=== PATIENT | male | born 1945 | race Hispanic/Latino ===

== ENCOUNTER 2017-07-21 12:37 | Emergency (ER) | payer MEDICARE, MEDICAID ==
[~2017-07-21] VITALS: Ht 175.3 cm; Wt 113.0 kg
[~2017-07-21 12:37] MED LIST: AFRIN 12 HOUR0.05 %; ANTIVERT PO; ASPIRIN ADULT L81 M2 PO; ASPIRIN EC81 MG PO; BACTRIM DS1 TAB PO; CARVEDILOL25 MG PO; CASCARA SAGR450 MG PO; CLOPIDOGREL75 MG PO; COLACE100 MG PO; COREG25 MG PO; COZAAR100 MG PO; FLUARIX QUADRIV1 IN1 IM; FUROSEMIDE20 MG PO; GLIPIZIDE5 M2 PO; HYDROCO/APAP1 TA9 PO; ISORDIL10 MG PO; JANUVIA100 MG PO; LANTUS100 MG/ML SC; LASIX 20 MG TAB20 MG PO; LISINOPRIL40 MG PO; LORTAB 5-325 MG1 TAB PO; LORTAB 5/3255 MG PO; METFORMIN500 MG PO; MULTIVITAMI1 PO; NITROSTAT0.4 MG PO; NITROSTAT0.4 MG SL; PANTOPRAZOLE SO40 MG PO; PRAVASTATIN SOD40 MG PO; PROTONIX40 M2 PO; SERTRALINE50 MG PO; TAMSULOSIN HCL0.4 MG PO; TAMSULOSIN0.4 MG PO; TOPROL XL PO; TOUJEO SOL300 UNIT/M SC; ZETIA10 MG PO; ZOFRAN4 M1 PO; ZOLOFT50 MG PO
[2017-07-21 12:59] LABS: HEMOGLOBIN 13.7 g/dl (14.0-18.0); IMMATURE GRANULOCYTES 0.2 % (0.0-1.0); MEAN CELL VOLUME 87.7 fL CALC (80.0-100.0); MEAN CORPUSCULAR HGB CONC 34.3 g/L CALC (32.0-36.0); NEUT# 2.43 thou/uL (1.82-7.42); RED BLOOD COUNT 4.56 mill/uL (4.70-6.10); RED CELL DISTRI WIDTH 12.5 % (11.5-15.5)
[2017-07-21 13:12] LABS: ALBUMIN 4.1 g/dL (3.2-5.0); ALKALINE PHOSPHATASE 56 u/l (38-126); ANION GAP 14 (6-22 (CALC)); BILIRUBIN, TOTAL 0.4 mg/dL (0.0-1.4); BUN 23 mg/dL (8-23); BUN/CREATININE RATIO 30 (12-20 (CALC)); CALCIUM 9.4 mg/dL (8.4-10.2); CARBON DIOXIDE 23 mmol/l (22-30); CHLORIDE 105 mmol/l (95-108); CREATININE 0.8 mg/dL (0.7-1.3); GFR > 60 ML/MIN (>=60 (CALC)); GFR FOR AFR.AMER. > 60 ML/MIN (>=60 (CALC)); GLUCOSE 132 mg/dL (82-115); POTASSIUM 4.5 mmol/l (3.5-5.1); SGOT/AST 19 u/l (19-48); SGPT/ALT 34 u/l (11-66); SODIUM 138 mmol/l (137-146)
[2017-07-21 13:24] LABS: MYOGLOBIN 70 ng/mL (0 - 121)
[2017-07-21 15:08] LABS: URINE BILIRUBIN - DIPSTICK NEGATIVE (NEGATIVE); URINE BLOOD DIPSTICK NEGATIVE (NEGATIVE); URINE CLARITY CLEAR; URINE COLOR YELLOW; URINE GLUCOSE - DIPSTICK NEGATIVE (NEGATIVE); URINE KETONE NEGATIVE (NEGATIVE); URINE LEUK ESTERASE NEGATIVE (NEGATIVE); URINE NITRITE - DIPSTICK NEGATIVE (Negative); URINE PH 5.5 (4.5-8.0); URINE PROTEIN - DIPSTICK NEGATIVE (NEG-TRACE); URINE SPECIFIC GRAVITY 1.015; URINE UROBILINOGEN - DIPSTICK 0.2 E.U./dL (0.2)
[2017-07-21] MEDS ORDERED: NAPROSYN500 MG PO (15:59)
[2017-07-21 16:10] VITALS: BP 165/72
== END 2017-07-21 16:24 | disposition home or self-care (01) ==
LOC: ED 12:37
PROVIDERS: Emergency Medicine
DX: R07.89 Other chest pain (principal); R06.02 Shortness of breath; I25.810 Atherosclerosis of coronary artery bypass graft(s) without angina pectoris; I10 Essential (primary) hypertension; Z95.1 Presence of aortocoronary bypass graft; E11.9 Type 2 diabetes mellitus without complications; Z79.4 Long term (current) use of insulin

== ENCOUNTER 2018-05-22 13:31 | Observation (INO) | payer MEDICARE, MEDICAID ==
[~2018-05-22] VITALS: Ht 177.8 cm; Wt 113.0 kg
[~2018-05-22 13:31] MED LIST changes: +NAPROSYN500 MG PO
[2018-05-22] MEDS ORDERED: SERTRALINE HCL50 MG PO (13:53)
[2018-05-22] MEDS ORDERED: SINGULAIR10 MG PO (13:53)
[2018-05-22] MEDS ORDERED: COREG6.25 MG PO (13:54)
[2018-05-22] MEDS ORDERED: TAMSULOSIN0.4 MG PO (13:54)
[2018-05-22] MEDS ORDERED: ISOSORB MONO30 MG PO (13:55)
[2018-05-22] MEDS ORDERED: PANTOPRAZOLE SO40 MG PO (13:55)
[2018-05-22 13:57] LABS: HEMOGLOBIN 14.2 g/dl (14.0-18.0); IMMATURE GRANULOCYTES 0.3 % (0.0-5.0); MEAN CELL VOLUME 88.8 fL CALC (80.0-100.0); MEAN CORPUSCULAR HGB CONC 33.8 g/L CALC (32.0-36.0); NEUT# 2.19 thou/uL (1.82-7.42); RED BLOOD COUNT 4.73 mill/uL (4.70-6.10); RED CELL DISTRI WIDTH 12.9 % (11.5-15.5)
[2018-05-22] MEDS ORDERED: TRESIBA FL100 UNIT/M SC (13:57)
[2018-05-22 14:15] LABS: ALKALINE PHOSPHATASE 73 u/l (38-126); ANION GAP 16 (6-22 (CALC)); BILIRUBIN, TOTAL 0.4 mg/dL (0.0-1.4); BUN 19 mg/dL (8-23); BUN/CREATININE RATIO 26 (12-20 (CALC)); CARBON DIOXIDE 22 mmol/l (22-30); CHLORIDE 106 mmol/l (95-108); CREATININE 0.7 mg/dL (0.7-1.3); GFR > 60 ML/MIN (>=60 (CALC)); GFR FOR AFR.AMER. > 60 ML/MIN (>=60 (CALC)); POTASSIUM 4.5 mmol/l (3.5-5.1); SGPT/ALT 36 u/l (11-66); SODIUM 139 mmol/l (137-146); TOTAL PROTEIN 7.3 g/dL (6.3-8.2)
[2018-05-22 14:16] LABS: SGOT/AST 29 u/l (19-48)
[2018-05-22 14:27] LABS: MYOGLOBIN 38 ng/mL (0 - 121)
[2018-05-22 15:01] LABS: URINE BILIRUBIN - DIPSTICK NEGATIVE (NEGATIVE); URINE BLOOD DIPSTICK NEGATIVE (NEGATIVE); URINE COLOR YELLOW; URINE GLUCOSE - DIPSTICK NEGATIVE (NEGATIVE); URINE KETONE NEGATIVE (NEGATIVE); URINE LEUK ESTERASE NEGATIVE (Negative); URINE NITRITE - DIPSTICK NEGATIVE (Negative); URINE PROTEIN - DIPSTICK NEGATIVE (NEG-TRACE)
[2018-05-22 15:02] LABS: URINE CLARITY CLEAR
[2018-05-22 16:25] VITALS: BP 124/72
[2018-05-22 20:01] VITALS: BP 110/64
[2018-05-23 00:25] VITALS: BP 126/78
[2018-05-23 02:05] LABS: HEMATOCRIT 37.2 % (39.0-50.0); HEMOGLOBIN 12.5 g/dl (14.0-18.0); MEAN CELL VOLUME 89.4 fL CALC (80.0-100.0); MEAN CORPUSCULAR HGB CONC 33.6 g/L CALC (32.0-36.0); RED BLOOD COUNT 4.16 mill/uL (4.70-6.10); RED CELL DISTRI WIDTH 13.1 % (11.5-15.5)
[2018-05-23 02:24] LABS: ANION GAP 14 (6-22 (CALC)); BUN 19 mg/dL (8-23); BUN/CREATININE RATIO 23 (12-20 (CALC)); CALCULATED LDLCHOLESTEROL 104 mg/dL (62-129 (CALC)); CARBON DIOXIDE 23 mmol/l (22-30); CHLORIDE 108 mmol/l (95-108); CREATININE 0.8 mg/dL (0.7-1.3); GFR > 60 ML/MIN (>=60 (CALC)); GFR FOR AFR.AMER. > 60 ML/MIN (>=60 (CALC)); HDL CHOLESTEROL 32 mg/dL (>=40); POTASSIUM 4.3 mmol/l (3.5-5.1); SODIUM 140 mmol/l (137-146); TOTAL CHOLESTEROL 157 mg/dl (0-199); TOTAL TRIGLYCERIDES 109 mg/dl (30-149); VLDL CHOLESTROL 22 mg/dl (0-38 (CALC))
[2018-05-23 04:31] VITALS: BP 145/85
[2018-05-23 07:39] VITALS: BP 157/87
[2018-05-23 12:00] VITALS: BP 143/84
== END 2018-05-23 13:53 | disposition home or self-care (01) ==
LOC: ED 13:31 → ED-I 14:50 → ED 15:17 → MS2 15:18 → ED-I 15:31 → ED 15:31 → MS2 05-23 13:53
PROVIDERS: Emergency Medicine; ADMIT Internal Medicine; ATTEND Internal Medicine
DX: R07.9 Chest pain, unspecified (principal); I25.10 Atherosclerotic heart disease of native coronary artery without angina pectoris; I10 Essential (primary) hypertension; E11.9 Type 2 diabetes mellitus without complications; E78.5 Hyperlipidemia, unspecified; F32.9 Major depressive disorder, single episode, unspecified; N40.0 Benign prostatic hyperplasia without lower urinary tract symptoms; Z95.5 Presence of coronary angioplasty implant and graft; Z95.1 Presence of aortocoronary bypass graft

== ENCOUNTER 2018-05-29 14:38 | Emergency (ER) | payer MEDICARE, MEDICAID ==
[~2018-05-29] VITALS: Ht 177.8 cm; Wt 110.9 kg
[~2018-05-29 14:38] MED LIST changes: +COREG6.25 MG PO; +ISOSORB MONO30 MG PO; +SERTRALINE HCL50 MG PO; +SINGULAIR10 MG PO; +TRESIBA FL100 UNIT/M SC
[2018-05-29 15:05] LABS: GFR > 60 ML/MIN (>=60 (CALC)); GFR FOR AFR.AMER. > 60 ML/MIN (>=60 (CALC))
[2018-05-29 15:09] LABS: HEMATOCRIT 40.3 % (39.0-50.0); HEMOGLOBIN 13.6 g/dl (14.0-18.0); IMMATURE GRANULOCYTES 0.2 % (0.0-5.0); MEAN CELL VOLUME 88.2 fL CALC (80.0-100.0); MEAN CORPUSCULAR HGB 29.8 pG CALC (26.0-32.0); MEAN CORPUSCULAR HGB CONC 33.7 g/L CALC (32.0-36.0); NEUT# 2.46 thou/uL (1.82-7.42); RED BLOOD COUNT 4.57 mill/uL (4.70-6.10); RED CELL DISTRI WIDTH 12.8 % (11.5-15.5)
[2018-05-29 15:20] VITALS: BP 97/52
[2018-05-29 15:26] LABS: ALKALINE PHOSPHATASE 63 u/l (38-126); ANION GAP 18 (6-22 (CALC)); BILIRUBIN, TOTAL 0.4 mg/dL (0.0-1.4); BUN 25 mg/dL (8-23); BUN/CREATININE RATIO 28 (12-20 (CALC)); CARBON DIOXIDE 23 mmol/l (22-30); CHLORIDE 106 mmol/l (95-108); CREATININE 0.9 mg/dL (0.7-1.3); GFR > 60 ML/MIN (>=60 (CALC)); GFR FOR AFR.AMER. > 60 ML/MIN (>=60 (CALC)); LIPASE 52 u/l (23-300); POTASSIUM 4.9 mmol/l (3.5-5.1); SGOT/AST 21 u/l (19-48); SGPT/ALT 30 u/l (11-66); SODIUM 142 mmol/l (137-146); TOTAL PROTEIN 6.9 g/dL (6.3-8.2)
== END 2018-05-29 15:21 | disposition short-term general hospital (02) ==
LOC: ED 14:38
PROVIDERS: Family Medicine
DX: I63.9 Cerebral infarction, unspecified (principal); R27.0 Ataxia, unspecified; H54.7 Unspecified visual loss; R29.810 Facial weakness; R29.704 NIHSS score 4; E11.9 Type 2 diabetes mellitus without complications; I10 Essential (primary) hypertension; F32.9 Major depressive disorder, single episode, unspecified; I25.10 Atherosclerotic heart disease of native coronary artery without angina pectoris; E78.5 Hyperlipidemia, unspecified; N40.0 Benign prostatic hyperplasia without lower urinary tract symptoms; Z95.1 Presence of aortocoronary bypass graft

== ENCOUNTER → 2018-07-09 | Outpatient (REF) | payer MEDICARE, MEDICAID ==
[2018-07-09 10:03] LABS: ANION GAP 13 (6-22 (CALC)); BUN 15 mg/dL (8-23); BUN/CREATININE RATIO 20 (12-20 (CALC)); CARBON DIOXIDE 23 mmol/l (22-30); CHLORIDE 106 mmol/l (95-108); CREATININE 0.8 mg/dL (0.7-1.3); GFR > 60 ML/MIN (>=60 (CALC)); GFR FOR AFR.AMER. > 60 ML/MIN (>=60 (CALC)); POTASSIUM 4.6 mmol/l (3.5-5.1); SODIUM 138 mmol/l (137-146)
== END | disposition home or self-care (01) ==
LOC: LAB 09:04
PROVIDERS: ATTEND Nurse Practitioner Family
DX: E11.649 Type 2 diabetes mellitus with hypoglycemia without coma (principal); R42 Dizziness and giddiness; R53.1 Weakness

== ENCOUNTER 2019-09-01 21:21 | Emergency (ER) | payer MEDICARE, MEDICAID ==
[~2019-09-01] VITALS: Ht 177.8 cm; Wt 109.5 kg
[2019-09-01] MEDS ORDERED: ATORVASTATIN CA40 MG PO (22:06)
[2019-09-01] MEDS ORDERED: ASPIRIN/ENTERIC81 MG PO (22:06)
[2019-09-01] MEDS ORDERED: CARB/LEVO1 TA5 PO (22:08)
[2019-09-01] MEDS ORDERED: CASCARA SAGR450 MG PO (22:09)
[2019-09-01] MEDS ORDERED: NITROGLYCERIN0.4 MG SL (22:11)
[2019-09-01 22:18] LABS: HEMATOCRIT 38.5 % (39.0-50.0); HEMOGLOBIN 12.7 g/dl (14.0-18.0); IMMATURE GRANULOCYTES 0.2 % (0.0-5.0); MEAN CELL VOLUME 89.1 fL CALC (80.0-100.0); MEAN CORPUSCULAR HGB 29.4 pG CALC (26.0-32.0); NEUT# 2.8 thou/uL (1.82-7.42); RED BLOOD COUNT 4.32 mill/uL (4.70-6.10); RED CELL DISTRI WIDTH 13.2 % (11.5-15.5)
[2019-09-01 22:40] LABS: ALBUMIN 3.8 g/dL (3.2-5.0); ALKALINE PHOSPHATASE 78 u/l (38-126); ANION GAP 12 (6-22 (CALC)); BILIRUBIN, TOTAL 0.4 mg/dL (0.0-1.4); BUN 21 mg/dL (8-23); BUN/CREATININE RATIO 21 (12-20 (CALC)); CARBON DIOXIDE 25 mmol/l (22-30); CHLORIDE 104 mmol/l (95-108); GFR > 60 ML/MIN (>=60 (CALC)); GFR FOR AFR.AMER. > 60 ML/MIN (>=60 (CALC)); POTASSIUM 4.5 mmol/l (3.5-5.1); SGOT/AST 32 u/l (19-48); SODIUM 137 mmol/l (137-146); TOTAL PROTEIN 6.9 g/dL (6.3-8.2)
[2019-09-01 22:51] LABS: MYOGLOBIN 72 ng/mL (0 - 121)
[2019-09-01 23:33] VITALS: BP 167/81
== END 2019-09-01 23:33 | disposition home or self-care (01) ==
LOC: ED 21:21
PROVIDERS: Emergency Medicine
DX: I10 Essential (primary) hypertension (principal); E11.9 Type 2 diabetes mellitus without complications; I25.10 Atherosclerotic heart disease of native coronary artery without angina pectoris; Z79.4 Long term (current) use of insulin

== ENCOUNTER 2020-03-10 16:20 | Emergency (ER) | payer MEDICARE, MEDICAID ==
[~2020-03-10 16:20] MED LIST changes: +ASPIRIN/ENTERIC81 MG PO; +ATORVASTATIN CA40 MG PO; +CARB/LEVO1 TA5 PO; +NITROGLYCERIN0.4 MG SL
[2020-03-10 17:22] LABS: HEMATOCRIT 41.5 % (39.0-50.0); HEMOGLOBIN 13.9 g/dl (14.0-18.0); IMMATURE GRANULOCYTES 0.2 % (0.0-5.0); MEAN CELL VOLUME 88.3 fL CALC (80.0-100.0); MEAN CORPUSCULAR HGB 29.6 pG CALC (26.0-32.0); MEAN CORPUSCULAR HGB CONC 33.5 g/dL CAL (32.0-36.0); NEUT# 3.18 thou/uL (1.82-7.42); RED BLOOD COUNT 4.7 mill/uL (4.70-6.10); RED CELL DISTRI WIDTH 13.2 % (11.5-15.5)
[2020-03-10 17:39] LABS: ALBUMIN 4.4 g/dL (3.2-5.0); ALKALINE PHOSPHATASE 81 u/l (38-126); AMYLASE 30 u/l (30-110); ANION GAP 13 (6-22 (CALC)); BUN 15 mg/dL (8-23); BUN/CREATININE RATIO 22 (12-20 (CALC)); CARBON DIOXIDE 27 mmol/l (22-30); CHLORIDE 98 mmol/l (95-108); CREATININE 0.7 mg/dL (0.7-1.3); GFR > 60 ML/MIN (>=60 (CALC)); GFR FOR AFR.AMER. > 60 ML/MIN (>=60 (CALC)); LIPASE 34 u/l (23-300); POTASSIUM 4.3 mmol/l (3.5-5.1); SODIUM 134 mmol/l (137-146); TOTAL PROTEIN 7.6 g/dL (6.3-8.2)
[2020-03-10 17:41] LABS: BILIRUBIN, TOTAL 0.9 mg/dL (0.0-1.4); SGOT/AST 30 u/l (19-48)
[2020-03-10 17:43] LABS: URINE BILIRUBIN - DIPSTICK NEGATIVE (NEGATIVE); URINE BLOOD DIPSTICK NEGATIVE (NEGATIVE); URINE COLOR YELLOW; URINE GLUCOSE - DIPSTICK NEGATIVE (NEGATIVE); URINE KETONE NEGATIVE (NEGATIVE); URINE LEUK ESTERASE NEGATIVE (NEGATIVE); URINE NITRITE - DIPSTICK NEGATIVE (Negative); URINE PROTEIN - DIPSTICK NEGATIVE (NEG-TRACE); URINE SPECIFIC GRAVITY 1.015; URINE UROBILINOGEN - DIPSTICK 0.2 E.U./dL (0.2)
[2020-03-10] MEDS ORDERED: PHENERGAN25 MG/TAB PO (19:03)
[2020-03-10 19:05] VITALS: BP 174/79
[2020-03-10] MEDS ORDERED: VENLAFAXINE75 M2 PO (19:37)
[2020-03-10] MEDS ORDERED: NORTHERA300 MG (19:38)
== END 2020-03-10 19:05 | disposition home or self-care (01) ==
LOC: ED 16:20
PROVIDERS: Family Medicine
DX: A08.4 Viral intestinal infection, unspecified (principal); I10 Essential (primary) hypertension; I25.10 Atherosclerotic heart disease of native coronary artery without angina pectoris; E11.9 Type 2 diabetes mellitus without complications; Z95.1 Presence of aortocoronary bypass graft; Z79.4 Long term (current) use of insulin
CPT/HCPCS: Q9967

== ENCOUNTER 2020-04-03 14:52 | Inpatient (IN) | payer MEDICARE, MEDICAID ==
[2020-03-31 22:15] VITALS: BP 140/68
[~2020-04-03] VITALS: Ht 177.8 cm; Wt 104.9 kg
[~2020-04-03 14:52] MED LIST changes: +NORTHERA300 MG; +PHENERGAN25 MG/TAB PO; +VENLAFAXINE75 M2 PO
--- NOTE | 2020-04-03 14:57 | NUR ---
pt to room 16 via EMS stretcher. Pt sitting in tripod position c/o shortness of breath, dry cough x 3 days. Pt initial 02 sat on RA 88%, pt immediately placed on 4l via NC, 02 up to 93% Dr Landin at bedside. EKG obtained,plan of care discussed with pt at this time. He verbalized understanding.
[2020-04-03] MEDS ORDERED: NORVASC5 M1 PO (15:11)
[2020-04-03] MEDS ORDERED: METFORMIN500 M2 PO (15:12)
[2020-04-03] MEDS ORDERED: RYTARY 36.25-141 CAP PO (15:14)
[2020-04-03 15:30] LABS: HEMATOCRIT 37.3 % (39.0-50.0); HEMOGLOBIN 12.8 g/dl (14.0-18.0); IMMATURE GRANULOCYTES 0.4 % (0.0-5.0); MEAN CORPUSCULAR HGB 29.2 pG CALC (26.0-32.0); MEAN CORPUSCULAR HGB CONC 34.3 g/dL CAL (32.0-36.0); NEUT# 10.3 thou/uL (1.82-7.42); RED BLOOD COUNT 4.39 mill/uL (4.70-6.10); RED CELL DISTRI WIDTH 13.1 % (11.5-15.5)
--- NOTE | 2020-04-03 16:00 | NUR ---
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
[2020-04-03 16:36] LABS: ALBUMIN 3.9 g/dL (3.2-5.0); ALKALINE PHOSPHATASE 108 u/l (38-126); BILIRUBIN, TOTAL 1.2 mg/dL (0.0-1.4); BUN 19 mg/dL (8-23); BUN/CREATININE RATIO 21 (12-20 (CALC)); CHLORIDE 99 mmol/l (95-108); CREATININE 0.9 mg/dL (0.7-1.3); GFR > 60 ML/MIN (>=60 (CALC)); GFR FOR AFR.AMER. > 60 ML/MIN (>=60 (CALC)); POTASSIUM 4.5 mmol/l (3.5-5.1); SGOT/AST 39 u/l (19-48); SODIUM 128 mmol/l (137-146); TOTAL PROTEIN 7.5 g/dL (6.3-8.2)
[2020-04-03 16:37] LABS: ANION GAP 16 (6-22 (CALC)); C-REACTIVE PROTEIN > 9.0 mg/dL (0-0.9); CARBON DIOXIDE 18 mmol/l (22-30)
--- NOTE | 2020-04-03 17:00 | NUR ---
DR AYALA AT BEDSIDE TO DISCUSS POC AND FINDINGS
--- NOTE | 2020-04-03 17:58 | NUR ---
MEAL TRAY GIVEN; PT AND SPOUSE ADVISED OF CONTINUED WAIT TIME FOR ADMISSION; VSS; WILL CONTINUE TO MONITOR
--- NOTE | 2020-04-03 18:23 | NUR ---
SBAR PRINTED TO FLOOR
--- NOTE | 2020-04-03 19:26 | NUR ---
SR NO ECTOPY DENIES PAIN NO SOB NO COUGH NO CONGESTION
--- NOTE | 2020-04-03 20:35 | NUR ---
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
--- NOTE | 2020-04-03 21:40 | NUR ---
PHONE REPORT TO NURSE BUSH IN ICU THEN PT TO ICU RM1 VIA STRETCHER ON TELE AND O2 IN STABLE CONDITION
--- NOTE | 2020-04-03 22:00 | NUR ---
PATIENT ARRIVES VIA ER STRETCHER ON THE CARPENTER FOREMAN AND O2. PT WAS ABLE TO SCOOT TO THE BED WITH PLENTY OF VERBAL CUEING, PT SAT ON SIDE OF BED TO VOID, WHEN HE GOT UP TO USE URINAL HE URINATED ON HIS SHORTS AND UNDERWEAR, WAS ABLE TO USE URINAL. PT ABLE TO ANSWER MOST OF ADMISSION QUESTIONS REGARDING HIS MEDICAL HISTORY, SOME QUESTIONS HE WAS UNSURE OF, PT IS ALERT AND ORIENTED X3. DOES HAVE SLOW RESPONSES WHEN QUESTIONS ASKED. I HAD TO SPEAK TO HS SIGNIFICANT OTHER TO COMPLETE ADMISSION, SHE WILL BE BRINGING AN ACCURATE LIST OF PATIENT'S MEDS IN THE MORNING. PT IS AFEBRILE. SR ON TELEMETRY. BP WNL. O2 WEANED TO 3 L/MIN, SATS GREATER THAN 95%. POC DISCUSSED WITH HIM. ALSO EXPLAINED HE IS IN ISOLATION PRECAUTIONS DUE TO HIS POSITIVE BLOOD TESTS FOR COVID AND NOW AWAITING FOR SWAB RESULTS. PT IS ONLY SOB WITH EXERTION. [facility] EMS IV IS INTACT, FLUSHES PROPERLY, SALINE LOCKED. CALL LIGHT WITHIN REACH.
[2020-04-03 22:30] VITALS: BP 118/47
[2020-04-03 22:45] VITALS: BP 119/53
[2020-04-03 23:00] VITALS: BP 104/52
[2020-04-03 23:15] VITALS: BP 98/53
[2020-04-04] VITALS (13 sets, daily range): BP systolic 105–148; BP diastolic 53–78
--- NOTE | 2020-04-04 01:00 | NUR ---
PT SAT UP ON THE SIDE OF THE BED AND VOIDED A LARGE PUDDLE ON THE FLOOR. PT WAS CLEANED UP AND PT AGREES TO WEAR A BRIEF. PT ABLE TO PULL HIMSELF UP WITH VERBAL CUEING. 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 PT WAS REORIENTED, REASSURED. PT NOW LAYS WITH HOB 30 DEGREES. ENCOURAGED TO DRINK WATER. CALL LIGHT WITHIN REACH.
--- NOTE | 2020-04-04 04:33 | NUR ---
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 pt reports he received medication for his anxiety in er and it helped him. i assisted to sit pt up on side of bed. requests medication for his anxiety. i have called dr garza in [place] and received one time order for xanax. order faxed to pharmacy .
--- NOTE | 2020-04-04 04:49 | NUR ---
xanax medication given to patient as ordered. explained and demonstarted to pt he need to use call light for assistance at all times.
--- NOTE | 2020-04-04 04:56 | NUR ---
pt decides he want to lay back in bed from sitting position, assisted to lay him back down with hob 30 degrees, call light within reach.
[2020-04-04 05:19] LABS: HEMATOCRIT 37.6 % (39.0-50.0); HEMOGLOBIN 12.7 g/dl (14.0-18.0); IMMATURE GRANULOCYTES 0.3 % (0.0-5.0); MEAN CELL VOLUME 86.2 fL CALC (80.0-100.0); MEAN CORPUSCULAR HGB 29.1 pG CALC (26.0-32.0); MEAN CORPUSCULAR HGB CONC 33.8 g/dL CAL (32.0-36.0); NEUT# 10.38 thou/uL (1.82-7.42); RED BLOOD COUNT 4.36 mill/uL (4.70-6.10); RED CELL DISTRI WIDTH 13.4 % (11.5-15.5)
[2020-04-04 05:31] LABS: ANION GAP 15 (6-22 (CALC)); BUN 22 mg/dL (8-23); BUN/CREATININE RATIO 31 (12-20 (CALC)); CARBON DIOXIDE 21 mmol/l (22-30); CHLORIDE 100 mmol/l (95-108); CREATININE 0.7 mg/dL (0.7-1.3); GFR > 60 ML/MIN (>=60 (CALC)); GFR FOR AFR.AMER. > 60 ML/MIN (>=60 (CALC)); POTASSIUM 4.7 mmol/l (3.5-5.1); SODIUM 131 mmol/l (137-146)
[2020-04-04 06:39] LABS: C-REACTIVE PROTEIN > 27.0 mg/dL (0-0.9)
--- NOTE | 2020-04-04 07:30 | NUR ---
pt awake sitting on side of bed; no apparent distress noted; assessment completed at this time; pt alert and oriened; speaks divehi well/ deny need for science education professor at this time; no pain; no n/v noted; resp even and unlabored; lungs clear/ diminished bases; skin color wnl; o2 per nc; wood calker cough noted; hr reg; strong pulses; sr on monitor; abd soft with bs present; no bm noted per technical writer; assist to bsc x1 max assist; voiding yellow urine; pt also with urinary incont; #20 ems site removed from rh; #22 flushed and patent to fs; no redness or edema noted at sites; plan of care/ meds explained; call light within reach; safety explained/ pt need to use call light; will continue to monitor
--- NOTE | 2020-04-04 09:00 | NUR ---
Dr Oconnor present at bedside to assess pt and discuss plan of care
--- NOTE | 2020-04-04 10:15 | NUR ---
awake sitting on side of bed; no apparent distress noted; pt offers no complaints; iv intact; sr on monitor; call light within reach; will continue to monitor
--- NOTE | 2020-04-04 11:36 | NUR ---
awake in bed; meds explained and administered; pt informed to notify to bring in medication Rytari; iv intact; sr on monitor; call light within reach; will continue to monitor
--- NOTE | 2020-04-04 12:10 | NUR ---
awake sitting on side of bed eating lunch; no apparent distress noted; resp even and unlabored; sr on monitor; iv intact; call light within reach; will continue to monitor
--- NOTE | 2020-04-04 14:03 | NUR ---
pt awake standing at side of bed using urinal; pt has been instructed on numerous occasions to call and wait for assistance; safety precautions/ fall risk explained; sr on monitor; iv intact; o2 per nc; call light within reach; will continue to monitor
--- NOTE | 2020-04-04 15:53 | NUR ---
awake sitting on side of bed; no apparent distress noted; sr on monitor; iv intact; o2 per nc; no resp distress noted; call light within reach; will continue to monitor
--- NOTE | 2020-04-04 16:40 | NUR ---
pt awake sitting on side of bed; pt states "I can't sit like this any longer"; pt informed he can lay down if wanted; pt request assistance lying down; pt depend on staff at this time; after lying down to request brief; brief placed; sr on monitor; iv intact; pt now stating he would be more comfortable home; hospitalization explained; will continue to monitor
--- NOTE | 2020-04-04 16:45 | NUR ---
pt noted to have assist himself to sit on side of bed; brief removed per pt
--- NOTE | 2020-04-04 17:47 | NUR ---
awake sitting on side of bed; pt expresses wishezs of wanting to sign himself out; states he is uncomfortable; pt states "I have to take care of myself"; urinary incont noted; pericare per typewriter repairer; gown changed; will continue to monitor
--- NOTE | 2020-04-04 18:10 | NUR ---
awake standing at side of bed looking through personal belonging; pt has been explained per this senior underwriter on multiple occasions to use call light in regards to safety/ falls; sr on monitor; iv intact; o2 per nc; call light within reach
--- NOTE | 2020-04-04 20:00 | NUR ---
PATIENT UP AND ABOUT IN ROOM. STATES "I WANT TO GO HOME, MY CAN TAKE CARE OF ME." DISCUSSED WITH PATIENT IMPORTANCE OF WAITING FOR LAB RESULTS THAT ARE PENDING AND MEDICATIONS HE IS RECEIVING HERE. RESP ARE DYPNEIC WITH EXERTION. RA O2 SAT 93% LUNGS CLEAR IN UPPER AND DIMINISHED IN BASES BILATERALLY. TRACE PEDAL EDEMA. SALINE LOCK IN LFA, SITE BENIGN. FIELD MARKETING LEAD SHOWS SR. DISCUSSED PLAN OF CARE, TRANSFER TO M/S, PATIENT AGREEABLE TO STAYING UNTIL MORNING IF HE CAN BE TRANSFERRED TO M/S.
--- NOTE | 2020-04-04 21:45 | NUR ---
REPORT CALLED TO STEPHON ON M/S.
--- NOTE | 2020-04-04 21:55 | NUR ---
RECEIVED PATIENT FROM ICU NURSE ROBE PATIENT WAS TRANSPORTED VIA WHEELCHAIR, ORIENTED TO ROOM AND CALL LIGHT SYSTEM.
--- NOTE | 2020-04-04 21:55 | NUR ---
NURSE ROBE REPORTED THATY DURING TRANSFER FROM WHEELCHAIR TO BED, PATIENT ACCIDENTALLY PULLED IV.
--- NOTE | 2020-04-04 21:55 | NUR ---
TRANSFERRED TO M/S ROOM 266 VIA WC WITH BELONGINGS.
--- NOTE | 2020-04-04 22:30 | NUR ---
NEW IV REINSERTED ON RT HAND G 22 PATENT FLUSHES WELL.
--- NOTE | 2020-04-05 01:00 | NUR ---
PATIENT RESTING IN BED WITH EYES CLOSED, BREATHING EVEN AND UNLABORED CALL LIGHT AT REACH.
--- NOTE | 2020-04-05 03:03 | NUR ---
PATIENT REFUSED TO GET V/S AND REMOVED TELE REFUSED TO PUT BACK, WILL REATTEMPT LATER.
[2020-04-05 04:25] VITALS: BP 136/64
--- NOTE | 2020-04-05 05:15 | NUR ---
PATIENT REFUSED TO GET HOOKED TO TELEMETRY STATED "i DIDNT COME HERE FOR THAT", WILL INFORM MD.
--- NOTE | 2020-04-05 06:53 | NUR ---
DR. LOONEY MADE AWARE THAT PATIENT REFUSES TO BE HOOKED BACKED TO TELEMETRY NO NEW ORDERS MADE AT THIS TIME.
[2020-04-05 09:37] VITALS: BP 136/64
[2020-04-05] MEDS ORDERED: ZITHROMAX250 MG PO (10:29)
--- NOTE | 2020-04-05 10:47 | NUR ---
PT DECLINED TO WEAR OXYGEN THERAPY STATING THAT HE DID NOT NEED IT. O2 SAT 93% ROOM AIR. MEDICATIONS GIVEN PRESCRIBED BY MD AND PT TOOK THEM WITH NO PROBLEMS. PT IS AGRESSINVE WITH STAFF AND WANTS TO LEAVE. IN THE HALLWAY THREATENING TO HIT STAFF MEMBERS. ALLYN CORTÉS CALLED AND MD WITH PT ATTEMPTING TO REDIRECT. FAMILY WAS NOTIFIED REGARDING REQUEST FOR PT TO DISCHARGE HOME. PT TO DISCHARGE HOME WITH FAMILY.
--- NOTE | 2020-04-05 11:34 | NUR ---
DISCHARGE INFORMATION/MEDICATION TO TAKE AT HOME DISCUSSED WITH PATIENT AND HE STATES THAT HE UNDERSTANDS. ALL DISCHARGE PAPERS AND BELONGINGS TAKEN WITH PT.
== END 2020-04-05 10:50 | disposition home health service (06) | DRG 177 ==
LOC: ED 14:52 → ED-I 16:55 → ED 17:07 → ICU 17:08 → ED-I 17:08 → ICU 19:34 → MS2 04-04 13:21 → ICU 04-04 13:21 → MS2 04-04 21:45
PROVIDERS: Family Medicine; ADMIT Internal Medicine; ATTEND Internal Medicine
DX: U07.1 COVID-19 (principal); J12.89 Other viral pneumonia; F23 Brief psychotic disorder; F44.89 Other dissociative and conversion disorders; E11.65 Type 2 diabetes mellitus with hyperglycemia; G20 Parkinson's disease; I10 Essential (primary) hypertension; I25.10 Atherosclerotic heart disease of native coronary artery without angina pectoris; E78.5 Hyperlipidemia, unspecified; Z95.1 Presence of aortocoronary bypass graft; Z95.5 Presence of coronary angioplasty implant and graft; Z79.84 Long term (current) use of oral hypoglycemic drugs
CPT/HCPCS: J1650

== ENCOUNTER 2020-05-24 09:50 | Emergency (ER) | payer MEDICARE, MEDICAID ==
[~2020-05-24] VITALS: Ht 177.8 cm; Wt 109.0 kg
[~2020-05-24 09:50] MED LIST changes: +METFORMIN500 M2 PO; +NORVASC5 M1 PO; +RYTARY 36.25-141 CAP PO; +ZITHROMAX250 MG PO
[2020-05-24 10:22] VITALS: BP 164/76
== END 2020-05-24 10:20 | disposition home or self-care (01) ==
LOC: ED 09:50
DX: I10 Essential (primary) hypertension (principal); E11.9 Type 2 diabetes mellitus without complications; I25.10 Atherosclerotic heart disease of native coronary artery without angina pectoris; G20 Parkinson's disease; Z79.84 Long term (current) use of oral hypoglycemic drugs; Z86.73 Personal history of transient ischemic attack (TIA), and cerebral infarction without residual deficits; Z95.1 Presence of aortocoronary bypass graft

== ENCOUNTER 2020-06-10 17:26 | Emergency (ER) | payer MEDICARE, MEDICAID ==
[~2020-06-10] VITALS: Ht 177.8 cm; Wt 120.0 kg
[2020-06-10 18:24] LABS: HEMATOCRIT 38.1 % (39.0-50.0); HEMOGLOBIN 12.2 g/dl (14.0-18.0); IMMATURE GRANULOCYTES 0.2 % (0.0-5.0); MEAN CELL VOLUME 90.5 fL CALC (80.0-100.0); NEUT# 2.72 thou/uL (1.82-7.42); RED BLOOD COUNT 4.21 mill/uL (4.70-6.10); RED CELL DISTRI WIDTH 13.4 % (11.5-15.5)
[2020-06-10 19:20] LABS: ALBUMIN 3.6 g/dL (3.2-5.0); ALKALINE PHOSPHATASE 67 u/l (38-126); ANION GAP 14 (6-22 (CALC)); BILIRUBIN, TOTAL 0.5 mg/dL (0.0-1.4); BUN 18 mg/dL (8-23); BUN/CREATININE RATIO 29 (12-20 (CALC)); CARBON DIOXIDE 22 mmol/l (22-30); CHLORIDE 102 mmol/l (95-108); CREATININE 0.6 mg/dL (0.7-1.3); GFR > 60 ML/MIN (>=60 (CALC)); GFR FOR AFR.AMER. > 60 ML/MIN (>=60 (CALC)); POTASSIUM 4.5 mmol/l (3.5-5.1); SGOT/AST 21 u/l (19-48); SODIUM 133 mmol/l (137-146); TOTAL PROTEIN 6.3 g/dL (6.3-8.2)
[2020-06-10 20:39] VITALS: BP 160/77
== END 2020-06-10 20:39 | disposition home or self-care (01) ==
LOC: ED 17:26
PROVIDERS: Student in an Organized Health Care Education/Training Program
DX: I10 Essential (primary) hypertension (principal); E11.9 Type 2 diabetes mellitus without complications; I25.10 Atherosclerotic heart disease of native coronary artery without angina pectoris; G20 Parkinson's disease; Z95.1 Presence of aortocoronary bypass graft; Z79.84 Long term (current) use of oral hypoglycemic drugs; Z86.73 Personal history of transient ischemic attack (TIA), and cerebral infarction without residual deficits; Z86.19 Personal history of other infectious and parasitic diseases

== ENCOUNTER 2021-05-31 22:20 | Emergency (ER) | payer MEDICARE, MEDICAID ==
[~2021-05-31] VITALS: Ht 177.8 cm; Wt 112.0 kg
[2021-05-31] MEDS ORDERED: HYDRALAZINE10 MG PO (23:06)
[2021-05-31 23:08] LABS: IMMATURE GRANULOCYTES 0.2 % (0.0-5.0); MEAN CELL VOLUME 92.9 fL CALC (80.0-100.0); MEAN CORPUSCULAR HGB 30.8 pG CALC (26.0-32.0); MEAN CORPUSCULAR HGB CONC 33.2 g/dL CAL (32.0-36.0); NEUT# 3.36 thou/uL (1.82-7.42); RED BLOOD COUNT 4.09 mill/uL (4.70-6.10); RED CELL DISTRI WIDTH 12.6 % (11.5-15.5)
[2021-05-31] MEDS ORDERED: RESTORIL7.5 MG PO (23:08)
[2021-05-31] MEDS ORDERED: RYTARY 36.25-141 CAP PO (23:08)
[2021-05-31 23:09] LABS: HEMOGLOBIN 12.6 g/dl (14.0-18.0)
[2021-05-31] MEDS ORDERED: DOCUSATE SOD100 MG PO (23:09)
[2021-05-31] MEDS ORDERED: LORTAB 5/3255 MG PO (23:10)
[2021-05-31 23:24] LABS: D-DIMER 0.2 mg/L (0.19-0.60)
[2021-05-31 23:29] LABS: ACT PARTIAL THROMBO TIME 25.2 SECONDS (20.0-32.5); INTERNATIONAL NORMALIZED RATIO 1.1 RATIO (0.7-1.3); PROTHROMBIN TIME 11.2 SECONDS (9.0-12.5)
[2021-05-31 23:38] LABS: ALKALINE PHOSPHATASE 61 u/l (38-126); AMYLASE 49 u/l (30-110); ANION GAP 12 (6-22 (CALC)); BILIRUBIN, TOTAL 0.3 mg/dL (0.0-1.4); BUN 20 mg/dL (8-23); BUN/CREATININE RATIO 30 (12-20 (CALC)); CARBON DIOXIDE 26 mmol/l (22-30); CHLORIDE 100 mmol/l (95-108); CREATININE 0.7 mg/dL (0.7-1.3); GFR > 60 ML/MIN (>=60 (CALC)); GFR FOR AFR.AMER. > 60 ML/MIN (>=60 (CALC)); LIPASE 58 u/l (23-300); POTASSIUM 4.1 mmol/l (3.5-5.1); SGOT/AST 25 u/l (19-48); SODIUM 134 mmol/l (137-146); TOTAL PROTEIN 6.9 g/dL (6.3-8.2)
[2021-05-31 23:48] LABS: MYOGLOBIN 102 ng/mL (0 - 121)
[2021-06-01 00:18] VITALS: BP 186/85
== END 2021-06-01 00:18 | disposition left against medical advice (07) ==
LOC: ED 22:20
PROVIDERS: Family Medicine
DX: R07.9 Chest pain, unspecified (principal); R51.9 Headache, unspecified; I25.10 Atherosclerotic heart disease of native coronary artery without angina pectoris; I10 Essential (primary) hypertension; E11.9 Type 2 diabetes mellitus without complications; E78.5 Hyperlipidemia, unspecified; F32.9 Major depressive disorder, single episode, unspecified; G20 Parkinson's disease; Z86.73 Personal history of transient ischemic attack (TIA), and cerebral infarction without residual deficits; Z95.1 Presence of aortocoronary bypass graft; Z91.19 Patient's noncompliance with other medical treatment and regimen

== ENCOUNTER 2021-11-28 18:36 | Emergency (ER) | payer MEDICARE, MEDICAID ==
[~2021-11-28] VITALS: Ht 177.8 cm; Wt 98.0 kg
[~2021-11-28 18:36] MED LIST changes: +DOCUSATE SOD100 MG PO; +HYDRALAZINE10 MG PO; +RESTORIL7.5 MG PO
[2021-11-28 20:00] VITALS: BP 161/94
[2021-11-28] MEDS ORDERED: ALLERGY NA50 MCG/ACT IN (20:07)
[2021-11-28] MEDS ORDERED: TRESIBA FL100 UNIT/M SC (20:08)
[2021-11-28] MEDS ORDERED: EFFEXOR XR150 MG PO (20:09)
[2021-11-28] MEDS ORDERED: TRAZODONE HYDR150 MG PO (20:09)
[2021-11-28] MEDS ORDERED: BUSPIRONE10 MG PO (20:10)
[2021-11-28 20:33] LABS: URINE BILIRUBIN - DIPSTICK NEGATIVE (NEGATIVE); URINE BLOOD DIPSTICK NEGATIVE (NEGATIVE); URINE COLOR YELLOW; URINE GLUCOSE - DIPSTICK NEGATIVE (NEGATIVE); URINE KETONE NEGATIVE (NEGATIVE); URINE LEUK ESTERASE NEGATIVE (NEGATIVE); URINE PROTEIN - DIPSTICK NEGATIVE (NEG-TRACE); URINE SPECIFIC GRAVITY >=1.030; URINE UROBILINOGEN - DIPSTICK 0.2 E.U./dL (0.2)
[2021-11-28 20:35] LABS: URINE NITRITE - DIPSTICK NEGATIVE (Negative)
[2021-11-28 21:25] LABS: HEMATOCRIT 39.2 % (39.0-50.0); HEMOGLOBIN 13.1 g/dl (14.0-18.0); IMMATURE GRANULOCYTES 0.2 % (0.0-5.0); MEAN CELL VOLUME 91.4 fL CALC (80.0-100.0); MEAN CORPUSCULAR HGB 30.5 pG CALC (26.0-32.0); MEAN CORPUSCULAR HGB CONC 33.4 g/dL CAL (32.0-36.0); NEUT# 3.27 thou/uL (1.82-7.42); RED BLOOD COUNT 4.29 mill/uL (4.70-6.10); RED CELL DISTRI WIDTH 12.9 % (11.5-15.5)
[2021-11-28 21:42] LABS: ALBUMIN 4.1 g/dL (3.2-5.0); ALKALINE PHOSPHATASE 58 u/l (38-126); ANION GAP 12 (6-22 (CALC)); BILIRUBIN, TOTAL 0.4 mg/dL (0.0-1.4); BUN 15 mg/dL (8-23); BUN/CREATININE RATIO 26 (12-20 (CALC)); CARBON DIOXIDE 25 mmol/l (22-30); CHLORIDE 104 mmol/l (95-108); CREATININE 0.6 mg/dL (0.7-1.3); GFR > 60 ML/MIN (>=60 (CALC)); GFR FOR AFR.AMER. > 60 ML/MIN (>=60 (CALC)); POTASSIUM 4.2 mmol/l (3.5-5.1); SGOT/AST 24 u/l (19-48); SODIUM 137 mmol/l (137-146)
[2021-11-28 21:56] LABS: MYOGLOBIN 34 ng/mL (0 - 121)
== END 2021-11-29 03:30 | disposition home or self-care (01) ==
LOC: ED 18:36
PROVIDERS: Family Medicine
DX: R53.1 Weakness (principal); G20 Parkinson's disease; I10 Essential (primary) hypertension; E11.9 Type 2 diabetes mellitus without complications; I25.10 Atherosclerotic heart disease of native coronary artery without angina pectoris; E78.5 Hyperlipidemia, unspecified; F32.A Depression, unspecified; Z86.73 Personal history of transient ischemic attack (TIA), and cerebral infarction without residual deficits; Z95.1 Presence of aortocoronary bypass graft; Z79.84 Long term (current) use of oral hypoglycemic drugs; Z20.822 Contact with and (suspected) exposure to COVID-19

== ENCOUNTER 2022-02-02 14:21 | Emergency (ER) | payer MEDICARE, MEDICAID ==
[~2022-02-02] VITALS: Ht 177.8 cm; Wt 112.0 kg
[~2022-02-02 14:21] MED LIST changes: +ALLERGY NA50 MCG/ACT IN; +BUSPIRONE10 MG PO; +EFFEXOR XR150 MG PO; +TRAZODONE HYDR150 MG PO
[2022-02-02 14:36] VITALS: BP 154/74
[2022-02-02 15:34] LABS: HEMATOCRIT 38.6 % (39.0-50.0); HEMOGLOBIN 12.3 g/dl (14.0-18.0); IMMATURE GRANULOCYTES 0.2 % (0.0-5.0); MEAN CELL VOLUME 94.6 fL CALC (80.0-100.0); MEAN CORPUSCULAR HGB 30.1 pG CALC (26.0-32.0); MEAN CORPUSCULAR HGB CONC 31.9 g/dL CAL (32.0-36.0); NEUT# 4.07 thou/uL (1.82-7.42); RED BLOOD COUNT 4.08 mill/uL (4.70-6.10); RED CELL DISTRI WIDTH 13.1 % (11.5-15.5)
[2022-02-02 15:50] LABS: PROTHROMBIN TIME 10.4 SECONDS (9.0-12.5)
[2022-02-02 15:51] LABS: ALBUMIN 3.9 g/dL (3.2-5.0); ALKALINE PHOSPHATASE 66 u/l (38-126); ANION GAP 10 (6-22 (CALC)); BILIRUBIN, TOTAL 0.5 mg/dL (0.0-1.4); BUN 20 mg/dL (8-23); BUN/CREATININE RATIO 26 (12-20 (CALC)); CARBON DIOXIDE 23 mmol/l (22-30); CHLORIDE 106 mmol/l (95-108); CREATININE 0.8 mg/dL (0.7-1.3); GFR > 60 ML/MIN (>=60 (CALC)); GFR FOR AFR.AMER. > 60 ML/MIN (>=60 (CALC)); LIPASE 66 u/l (23-300); POTASSIUM 4.4 mmol/l (3.5-5.1); SGOT/AST 17 u/l (19-48); SODIUM 136 mmol/l (137-146); TOTAL PROTEIN 6.8 g/dL (6.3-8.2)
[2022-02-02 16:03] LABS: MYOGLOBIN 40 ng/mL (0 - 121)
[2022-02-02 18:01] VITALS: BP 149/78
[2022-02-02 18:23] LABS: URINE BILIRUBIN - DIPSTICK NEGATIVE (NEGATIVE); URINE BLOOD DIPSTICK TRACE-INTACT (NEGATIVE); URINE COLOR YELLOW; URINE GLUCOSE - DIPSTICK NEGATIVE (NEGATIVE); URINE KETONE NEGATIVE (NEGATIVE); URINE PH 6.5 (4.5-8.0); URINE PROTEIN - DIPSTICK NEGATIVE (NEG-TRACE); URINE UROBILINOGEN - DIPSTICK 0.2 E.U./dL (0.2)
[2022-02-02 18:24] LABS: URINE LEUK ESTERASE MODERATE (NEGATIVE); URINE NITRITE - DIPSTICK NEGATIVE (Negative)
[2022-02-02 18:29] LABS: URINE BACTERIA FEW hpf
[2022-02-02 18:30] VITALS: BP 175/97
[2022-02-02] MEDS ORDERED: KEFLEX500 MG PO (18:40)
[2022-02-02 19:00] VITALS: BP 164/92
[2022-02-02 19:30] VITALS: BP 164/87
[2022-02-02 19:47] VITALS: BP 164/87
== END 2022-02-02 20:42 | disposition home or self-care (01) ==
LOC: ED 14:21
PROVIDERS: Nurse Practitioner
DX: N39.0 Urinary tract infection, site not specified (principal); R60.0 Localized edema; I10 Essential (primary) hypertension; E11.9 Type 2 diabetes mellitus without complications; I25.10 Atherosclerotic heart disease of native coronary artery without angina pectoris; E78.5 Hyperlipidemia, unspecified; F32.A Depression, unspecified; G20 Parkinson's disease; N40.0 Benign prostatic hyperplasia without lower urinary tract symptoms; Z95.1 Presence of aortocoronary bypass graft; Z86.73 Personal history of transient ischemic attack (TIA), and cerebral infarction without residual deficits; Z79.84 Long term (current) use of oral hypoglycemic drugs; Z79.4 Long term (current) use of insulin
CPT/HCPCS: Q9967

== ENCOUNTER 2022-02-12 13:49 | Observation (INO) | payer MEDICARE, MEDICAID ==
[~2022-02-12] VITALS: Ht 170.2 cm; Wt 101.0 kg
[~2022-02-12 13:49] MED LIST changes: +KEFLEX500 MG PO
[2022-02-12 15:24] LABS: URINE BILIRUBIN - DIPSTICK NEGATIVE (NEGATIVE); URINE BLOOD DIPSTICK NEGATIVE (NEGATIVE); URINE COLOR YELLOW; URINE GLUCOSE - DIPSTICK NEGATIVE (NEGATIVE); URINE KETONE NEGATIVE (NEGATIVE); URINE LEUK ESTERASE NEGATIVE (NEGATIVE); URINE PROTEIN - DIPSTICK NEGATIVE (NEG-TRACE); URINE SPECIFIC GRAVITY 1.025; URINE UROBILINOGEN - DIPSTICK 0.2 E.U./dL (0.2)
[2022-02-12 15:29] LABS: HEMATOCRIT 40.6 % (39.0-50.0); HEMOGLOBIN 13.2 g/dl (14.0-18.0); IMMATURE GRANULOCYTES 0.2 % (0.0-5.0); MEAN CELL VOLUME 92.7 fL CALC (80.0-100.0); MEAN CORPUSCULAR HGB 30.1 pG CALC (26.0-32.0); MEAN CORPUSCULAR HGB CONC 32.5 g/dL CAL (32.0-36.0); NEUT# 3.86 thou/uL (1.82-7.42); RED BLOOD COUNT 4.38 mill/uL (4.70-6.10); RED CELL DISTRI WIDTH 12.9 % (11.5-15.5)
[2022-02-12 15:42] LABS: INTERNATIONAL NORMALIZED RATIO 1.1 RATIO (0.7-1.3)
[2022-02-12 15:42] LABS: URINE NITRITE - DIPSTICK NEGATIVE (Negative)
[2022-02-12 15:43] LABS: ALKALINE PHOSPHATASE 74 u/l (38-126); ANION GAP 17 (6-22 (CALC)); BILIRUBIN, TOTAL 0.4 mg/dL (0.0-1.4); BUN 19 mg/dL (8-23); BUN/CREATININE RATIO 26 (12-20 (CALC)); CARBON DIOXIDE 22 mmol/l (22-30); CHLORIDE 104 mmol/l (95-108); CREATININE 0.7 mg/dL (0.7-1.3); GFR > 60 ML/MIN (>=60 (CALC)); GFR FOR AFR.AMER. > 60 ML/MIN (>=60 (CALC)); POTASSIUM 4.6 mmol/l (3.5-5.1); SGOT/AST 24 u/l (19-48); SODIUM 138 mmol/l (137-146); TOTAL PROTEIN 7.1 g/dL (6.3-8.2)
[2022-02-12 15:54] LABS: MYOGLOBIN 41 ng/mL (0 - 121)
[2022-02-12 20:49] VITALS: BP 151/82
[2022-02-13 04:43] VITALS: BP 155/77
[2022-02-13 06:28] LABS: HEMOGLOBIN 12.8 g/dl (14.0-18.0); MEAN CELL VOLUME 93.1 fL CALC (80.0-100.0); MEAN CORPUSCULAR HGB 30.5 pG CALC (26.0-32.0); MEAN CORPUSCULAR HGB CONC 32.8 g/dL CAL (32.0-36.0); RED BLOOD COUNT 4.19 mill/uL (4.70-6.10); RED CELL DISTRI WIDTH 12.9 % (11.5-15.5)
[2022-02-13 06:39] LABS: ANION GAP 13 (6-22 (CALC)); BUN 17 mg/dL (8-23); BUN/CREATININE RATIO 24 (12-20 (CALC)); CARBON DIOXIDE 26 mmol/l (22-30); CHLORIDE 105 mmol/l (95-108); CREATININE 0.7 mg/dL (0.7-1.3); GFR > 60 ML/MIN (>=60 (CALC)); GFR FOR AFR.AMER. > 60 ML/MIN (>=60 (CALC)); MAGNESIUM 2.1 mg/dL (1.6-2.3); POTASSIUM 4.8 mmol/l (3.5-5.1); SODIUM 139 mmol/l (137-146)
[2022-02-13 07:15] VITALS: BP 161/60
[2022-02-13] MEDS ORDERED: HYDRALAZINE HYD25 MG PO (11:49)
[2022-02-13] MEDS ORDERED: METOPROL TAR25 MG PO (11:51)
[2022-02-13] MEDS ORDERED: METFORMIN HYD1000 MG PO (11:52)
[2022-02-13] MEDS ORDERED: TAMSULOSIN HCL0.4 MG PO (11:53)
[2022-02-13] MEDS ORDERED: QUETIAPINE FUMA25 MG PO (11:57)
[2022-02-13] MEDS ORDERED: TRESIBA FL200 UNIT/M SC (12:12)
[2022-02-13] MEDS ORDERED: LINZESS290 MCG PO (12:13)
[2022-02-13 15:49] VITALS: BP 175/99
== END 2022-02-13 16:46 | disposition home health service (06) ==
LOC: ED 13:49 → ED-I 17:00 → ED 17:16 → MS2 17:17
PROVIDERS: Nurse Practitioner; ADMIT Hospitalist; ATTEND Hospitalist
DX: R53.1 Weakness (principal); G20 Parkinson's disease; I10 Essential (primary) hypertension; E11.9 Type 2 diabetes mellitus without complications; I25.10 Atherosclerotic heart disease of native coronary artery without angina pectoris; E78.5 Hyperlipidemia, unspecified; F32.A Depression, unspecified; N40.0 Benign prostatic hyperplasia without lower urinary tract symptoms; Z79.4 Long term (current) use of insulin; Z86.73 Personal history of transient ischemic attack (TIA), and cerebral infarction without residual deficits; Z79.84 Long term (current) use of oral hypoglycemic drugs; Z95.1 Presence of aortocoronary bypass graft; Z95.5 Presence of coronary angioplasty implant and graft; Z20.822 Contact with and (suspected) exposure to COVID-19
CPT/HCPCS: J1650